=== PATIENT | female | born 1950 | race Caucasian/White ===

== ENCOUNTER 2019-06-11 08:38 | Day surgery (SDC) | payer OTHER ==
[2019-06-11 09:12] VITALS: BMI 28.3
[2019-06-11 10:24] VITALS: TEMP 97.7
[2019-06-11 12:44] VITALS: BP 141/51; PULSE 63
--- NOTE | 2019-06-12 15:44 | PATH ---
Surgical Pathology Report Patient Name: LINNEA SHOOK [facility]. Rec. #: [id number] /Age/Gender: 1950 (Age: 69) / F Account: [id number] Location: U-ENDOSCOPY Taken: 06/11/2019 Received: 06/11/2019 Reported: 06/12/2019 Physicians: Myles Dan M.D. Specimen(s) Received A: CECAL POLYP B: POLYP SIGMOID Clinical History Positive cologuard Postoperative diagnosis: Diverticulosis, polyps Final Diagnosis A. CECUM, POLYP, BIOPSY: TUBULAR ADENOMA. B. SIGMOID, POLYP, BIOPSY: HYPERPLASTIC POLYP. Electronically Signed More Givens M.D. Gross Description A. Received in formalin, labeled "biopsy cecal polyps" are 7 holt, irregular portions of soft tissue ranging from 0.2-0.3 cm. in greatest dimension. The specimens are submitted in toto in one cassette. B. Received in formalin, labeled "biopsy sigmoid polyp" is a holt, irregular portion of soft tissue measuring 0.3 cm. in greatest dimension. The specimen is submitted in toto in one cassette. DL06/11/2019 saudi06/11/2019
== END 2019-06-11 11:35 | disposition home or self-care (01) ==
LOC: JASU-ENDO 08:38
PROVIDERS: ATTEND Internal Medicine Gastroenterology
PROC: 0DBH8ZX Excision of Cecum, Via Natural or Artificial Opening Endoscopic, Diagnostic (ICD-10-PCS; principal; 2019-06-11 09:30)
DX: Z51.11 Encounter for antineoplastic chemotherapy (principal); D12.0 Benign neoplasm of cecum; K57.30 Diverticulosis of large intestine without perforation or abscess without bleeding
CPT/HCPCS: 88305-TC

== ENCOUNTER → 2021-03-19 | Day surgery (SDC) | payer OTHER | END | disposition home or self-care (01) | LOC: FMAMMOTONE 09:57 | PROVIDERS: ATTEND Family Medicine | PROC: 0HBT3ZX Excision of Right Breast, Percutaneous Approach, Diagnostic (ICD-10-PCS; principal; 2021-03-19) | DX: N60.21 Fibroadenosis of right breast (principal); N60.31 Fibrosclerosis of right breast; N64.89 Other specified disorders of breast; R92.0 Mammographic microcalcification found on diagnostic imaging of breast | CPT/HCPCS: 19081; 76098-TC-FY; 87899; 88305-TC; A4648 ==

== ENCOUNTER 2025-03-03 09:43 | Emergency (ER) | payer OTHER ==
[2025-03-03 09:56] VITALS: BMI 27.3
[2025-03-03] MEDS ORDERED: ACETAMINOPHEN 325 MG TABLET (FP) ONE (11:20)
[2025-03-03] MEDS: ACETAMINOPHEN 325 MG TABLET (FP) PO ONE (11:25)
[2025-03-03] MEDS: SODIUM CHLORIDE 1,000 ML IV STA (11:26)
[2025-03-03 11:33] LABS: ABSOLUTE IMMATURE GRANULOCYTES 0.05 x10^3/uL (0.0-0.031); BASOPHILS # 0.02 x10^3/uL (0.01-0.08); EOSINOPHIL % 0.1 % (0.7-5.8); EOSINOPHILS # 0.01 x10^3/uL (0.04-0.36); MCHC 33.1 g/dl (32.2-35.5); MEAN CELL VOLUME 88.0 fl (79.4-94.8); MEAN PLT VOLUME 10.9 fl (9.4-12.3); MONOCYTE # 1.08 x10^3/uL (0.24-0.86); MONOCYTE % 10.3 % (4.7-12.5); RDW 13.9 % (12.4-16.6)
[2025-03-03 11:33] LABS: BG HCT 36.0 % (32.4-45.2); VENOUS BASE EXCESS -2.5 mmol/L (-2-2); VENOUS O2 SATURATION 70.5 % (70-80); VENOUS PCO2 32.8 mmHg (38-52); VENOUS PH 7.427 (7.310-7.410)
[2025-03-03 11:36] LABS: EPI CELLS >36 /uL (0-25.1); HYALINE CASTS 1 /uL (0-3.1); URINE APPEARANCE CLOUDY; URINE BACTERIA 4 /uL (0-1359); URINE BILIRUBIN NEGATIVE (NEGATIVE); URINE COLOR YELLOW; URINE GLUCOSE (UA) NEGATIVE (NEGATIVE); URINE KETONE NEGATIVE (NEGATIVE); URINE LEUK ESTERASE 2+ (NEGATIVE); URINE NITRITE NEGATIVE (NEGATIVE); URINE PROTEIN 2+ (NEGATIVE); URINE RBC 230 /uL (0-23.9); URINE UROBILINOGEN 0.2 mg/dL (0.2-1.0); URINE WBC 267 /uL (0-25.8)
[2025-03-03 12:19] LABS: GLUCOSE,RANDOM 144.0 mg/dL (74-106)
[2025-03-03 12:21] LABS: SGPT/ALT 43.0 U/L (13-61)
[2025-03-03 12:22] LABS: CREATININE 0.8 mg/dL (0.55-1.3); SGOT/AST 21.0 U/L (15-37)
[2025-03-03 12:23] LABS: TOT PROT 5.7 g/dl (6.4-8.2)
[2025-03-03 12:24] LABS: ALK PHOS 60.0 U/L (45-117)
[2025-03-03 12:26] LABS: CO2 22.0 mmol/L (21-32)
[2025-03-03] MEDS ORDERED: CEFTRIAXONE 1 GM/50 ML BAG ONE (12:42)
[2025-03-03] MEDS: CEFTRIAXONE 1,000 MG in DEXTROSE 5%-WATER - 50 ML IVPB ONE (12:51)
[2025-03-03 13:10] VITALS: BP 116/58; PULSE 64; RESP 20
[2025-03-03 13:15] VITALS: TEMP 98.6
[2025-03-03 14:54] LABS: HIV INTERPRETATION NEGATIVE (NEGATIVE)
[2025-03-04 21:00] LABS: HCV DIAGNOSTIC IN-HOUSE W/RFLX NON-REACTIVE (NONREACTIVE)
== END 2025-03-03 13:16 | disposition admitted as inpatient to this hospital (09) ==
LOC: JER 09:43
PROC: 3E03329 Introduction of Other Anti-infective into Peripheral Vein, Percutaneous Approach (ICD-10-PCS; principal; 2025-03-03)
PROC: 3E0337Z Introduction of Electrolytic and Water Balance Substance into Peripheral Vein, Percutaneous Approach (ICD-10-PCS; 2025-03-03)
DX: N39.0 Urinary tract infection, site not specified (principal); R30.0 Dysuria; R35.0 Frequency of micturition; R39.15 Urgency of urination; R50.9 Fever, unspecified; R53.83 Other fatigue
CPT/HCPCS: 36415; 80053; 81003; 82803; 85025; 86803; 87040; 87086; 87389; 87637-QW; 99284-25